=== PATIENT | female | born 1935 | race Caucasian/White ===

== ENCOUNTER 2017-03-20 14:05 | Emergency (ER) | payer MEDICARE, OTHER ==
[2017-03-20 14:25] VITALS: BP 143/86
--- NOTE | 2017-03-20 15:16 | EDM.PDOC ---
ED HPI GENERAL MEDICAL PROBLEM - General Chief Complaint: Neuro Symptoms/Deficits Stated Complaint: DIZZY Time Seen by Provider: 03/20/17 14:58 Source of Information: Reports: Patient History Limitations: Reports: No Limitations - History of Present Illness INITIAL COMMENTS - FREE TEXT/NARRATIVE: History of present illness: [82-year-old female presenting with symptoms consistent with vertigo. They've been occurring for about 2-2-1/2 weeks. She had seen a provider who suggested it might be her Detrol that was causing this and so she stopped it and she continues to have this dizziness. She describes this as a sensation of movement or spinning that occurs when she is in certain positions or moves her head especially when she is lying down. When she is upright in her head is still she seems to D fine and actually drove herself here and didn't have any trouble. His is associated with some nausea but no vomiting she's not had any fevers chills sweats cough or cold symptoms no headaches or visual disturbances. Denies any peripheral neurological complaints numbness tingling or weakness.] Review of systems: As per history of present illness and below otherwise all systems reviewed and negative. Past medical history: As per history of present illness and as reviewed below otherwise noncontributory. Surgical history: As per history of present illness and as reviewed below otherwise noncontributory. Social history: No reported history of drug or alcohol abuse. Family history: As per history of present illness and as reviewed below otherwise noncontributory. Physical exam: HEENT: Atraumatic, normocephalic, pupils reactive, negative for conjunctival pallor or scleral icterus, mucous membranes moist, throat clear, neck supple, nontender, trachea midline. Lungs: Clear to auscultation, breath sounds equal bilaterally, chest nontender. Heart: S1S2, regular, negative for clicks, rubs, or JVD. Abdomen: Soft, nondistended, nontender. Negative for masses or hepatosplenomegaly. Negative for costovertebral tenderness. Pelvis: Stable nontender. Genitourinary: Deferred. Rectal: Deferred. Extremities: Atraumatic, negative for cords or calf pain. Neurovascular unremarkable. Neuro: Awake, alert, oriented. Cranial nerves II through XII unremarkable. Cerebellum unremarkable. Motor and sensory unremarkable throughout. Exam nonfocal. Diagnostics: [] Therapeutics: [] Impression: [Benign positional vertigo] Plan: [I'm providing her with a prescription for Antivert but I'm also advising her to follow with her primary care doctor to see if a referral to physical therapist was been trained in the Hallpike maneuvers might be warranted.] Definitive disposition and diagnosis as appropriate pending reevaluation and review of above. - Related Data Allergies Allergy/AdvReac Type Severity Reaction Status Date / Time oxybutynin chloride Allergy Intermediate Dizziness Verified 03/20/17 14:35 [From Ditropan] Home Meds: Home Meds Ascorbic Acid [Vitamin C] 1,000 mg PO 01/19/14 [History] Aspirin [Aspirin EC] 81 mg PO 01/19/14 [History] Cholecalciferol (Vitamin D3) [Vitamin D] 2,000 unit PO 01/19/14 [History] Lisinopril/Hydrochlorothiazide [Lisinopril-Hctz 20-25 mg Tab] 01/19/14 [History ] Multivit-Min/FA/Lycopene/Lut [Centrum Silver] 1 each PO 01/19/14 [History] Naproxen [Naprosyn] 01/19/14 [History] [place]-3 Fatty Acids [[place]-3] 1,000 mg PO 01/19/14 [History] Simvastatin [Simvastatin] 01/19/14 [History] Tolterodine Tartrate [Tolterodine Tartrate] 01/19/14 [History] Past Medical History Cardiovascular History: Reports: Hypertension ART DEPARTMENT HEAD History: Reports: Other OB/BYN History: MISCARRIAGE - Past Surgical History GI Surgical History: Reports: Cholecystectomy, Hernia, Abdominal Social & Family History - Tobacco Use Smoking Status *Q: Unknown Ever Smoked - Alcohol Use Days Per Week of Alcohol Use: 0 - Recreational Drug Use Recreational Drug Use: No ED ROS GENERAL - Review of Systems Review Of Systems: ROS reveals no pertinent complaints other than HPI. ED EXAM, GENERAL - Physical Exam Exam: See Below Course - Vital Signs Last Recorded V/S: Last Vital Signs Temp 36.6 C 03/20/17 14:22 Pulse 73 03/20/17 14:22 Resp 16 03/20/17 14:22 BP 143/86 H 03/20/17 14:22 Pulse Ox 98 03/20/17 14:22 Departure - Departure Time of Disposition: 15:16 Disposition: Home, Self-Care 01 Condition: Good Clinical Impression: Benign positional vertigo Qualifiers: Laterality: unspecified laterality Qualified Code(s): H81.10 - Benign paroxysmal vertigo, unspecified ear - Discharge Information Forms: ED Department Discharge Additional Instructions: Please follow-up with your doctor and he may refer you to a physical therapist this trained the maneuver we discussed.
== END 2017-03-20 15:28 | disposition home or self-care (01) ==
LOC: JP.ED 14:05
DX: H81.10 Benign paroxysmal vertigo, unspecified ear (principal); I10 Essential (primary) hypertension; Z90.49 Acquired absence of other specified parts of digestive tract; Z98.890 Other specified postprocedural states; Z79.82 Long term (current) use of aspirin; Z88.8 Allergy status to other drugs, medicaments and biological substances
CPT/HCPCS: 99284